=== PATIENT | female | born 1975 | race African-American/Black ===

== ENCOUNTER 2017-09-04 12:03 | Emergency (ER) | payer MEDICAID, OTHER ==
[~2017-09-04] VITALS: Ht 165.1 cm; Wt 79.4 kg
--- NOTE | 2017-09-04 12:03 | NUR ---
ABSCESS ON PUBIC AREA, +DRAINAGE, +DISCHARGE FROM VAGINA. GOWNED PT
[2017-09-04] MEDS ORDERED: LIDOCAINE HCL/PF 1% 30 ML SDV ONE (13:44)
[2017-09-04] MEDS ORDERED: LIDOCAINE HCL/PF 1% 30 ML VIAL TP ONE (14:00)
--- NOTE | 2017-09-04 14:17 | NUR ---
Patient discharged to home in stable condition. Written and verbal after care instructions given. Patient verbalizes understanding of instruction.
[2017-09-04 14:18] VITALS: BP 125/78
== END 2017-09-04 14:19 | disposition home or self-care (01) ==
LOC: ER 12:04
DX: L02.214 Cutaneous abscess of groin (principal); J45.909 Unspecified asthma, uncomplicated; D64.9 Anemia, unspecified; Z90.49 Acquired absence of other specified parts of digestive tract; Z88.1 Allergy status to other antibiotic agents; Z88.6 Allergy status to analgesic agent
CPT/HCPCS: 10060; 99283; A4606; A6402; J3490 ×2; Z7610

== ENCOUNTER 2017-09-13 19:55 | Emergency (ER) | payer OTHER ==
[~2017-09-13] VITALS: Ht 165.1 cm; Wt 79.8 kg
[2017-09-13 20:10] VITALS: BP 138/87
--- NOTE | 2017-09-13 21:33 | NUR ---
Patient eloped from facility. ER MD notified.
== END 2017-09-13 21:35 | disposition left against medical advice (07) ==
LOC: ER 20:02
DX: Z53.21 Procedure and treatment not carried out due to patient leaving prior to being seen by health care provider (principal)
CPT/HCPCS: A4606; Z7610

== ENCOUNTER 2018-01-03 18:14 | Emergency (ER) | payer OTHER ==
[~2018-01-03] VITALS: Ht 165.1 cm; Wt 81.6 kg
[2018-01-03 18:24] VITALS: BP 153/99
--- NOTE | 2018-01-03 18:47 | NUR ---
PT SEEN BY DR. THOMAS
== END 2018-01-03 19:01 | disposition home or self-care (01) ==
LOC: ER 18:15
DX: J45.909 Unspecified asthma, uncomplicated (principal); Z90.49 Acquired absence of other specified parts of digestive tract; Z88.1 Allergy status to other antibiotic agents; Z88.8 Allergy status to other drugs, medicaments and biological substances
CPT/HCPCS: 99281; A4606; Z7610; Z7502

== ENCOUNTER 2019-01-20 02:04 | Emergency (ER) | payer MEDICAID, OTHER ==
[~2019-01-20] VITALS: Ht 165.1 cm; Wt 68.0 kg
--- NOTE | 2019-01-20 02:30 | NUR ---
PT BIB RA WITH A C/O PALPITATIONS. PT WAS SEEN AT [facility] YESTERDAY AND WAS D/C'D HOME AFTER REC'ING FLUIDS. PT STATED THAT BY THE TIME SHE GOT HOME IT WAS AFTER 2229 AND SHE HAD A FRUIT CUP AND WENT TO BED. PT STATED THAT SHE WOKE UP THIS MORNING SHIVERING AND HER "HEART WAS RACING". PT LIVES WITH HER SMALL SON, WHO IS ALSO AT THE BEDSIDE. PT IS ON THE MONITOR AND CONTINUOUS PULSE OX. VSS.
[2019-01-20 02:53] LABS: BASOPHILS % (AUTO) 0.4 % (0.0-2.0); EOSINOPHILS % (AUTO) 0.6 % (0.0-6.0); HEMATOCRIT 30 % (33-45); HEMOGLOBIN 9.6 g/dL (11.5-14.8); LYMPHOCYTES # (AUTO) 0.8 /CMM (0.8-4.8); LYMPHOCYTES % (AUTO) 11.4 % (20.0-44.0); MEAN CORPUSCULAR HGB CONC 32 g/dl (31.0-36.0); MEAN CORPUSCULAR VOLUME 79 fL (82-100); MONOCYTES # (AUTO) 0.9 /CMM (0.1-1.30); MONOCYTES % (AUTO) 12.7 % (2.0-12.0); NEUTROPHILS # (AUTO) 5.2 /CMM (1.8-8.9); NEUTROPHILS % (AUTO) 74.9 % (43.0-81.0); PLATELET COUNT (AUTO) 304 /CMM (150-450); RED BLOOD CELL COUNT(AUTO) 3.86 MIL/uL (4.0-5.2); WHITE BLOOD COUNT (AUTO) 6.9 K/uL (4.3-11.0)
[2019-01-20] MEDS ORDERED: IV NS 0.9% 1,000 ML BAG IV ONE (03:00)
[2019-01-20] MEDS ORDERED: METOCLOPRAMIDE HCL 10 MG/2 ML VIAL IV ONE (03:00)
[2019-01-20 03:09] LABS: ALANINE AMINOTRANSFERASE 26 U/L (12-78); ALBUMIN 3.6 g/dL (3.4-5.0); ALKALINE PHOSPHATASE 52 U/L (46-116); ASPARTATE AMINOTRANSFERASE 14 U/L (15-37); BILIRUBIN,DIRECT 0.1 mg/dL (0.0-0.2); BILIRUBIN,TOTAL 0.4 mg/dL (0.2-1.0); CALCIUM, SERUM 8.8 mg/dL (8.5-10.1); CARBON DIOXIDE 27 mmol/L (21-32); CHLORIDE 104 mmol/L (98-107); CREATININE 0.9 mg/dL (0.6-1.3); GLUCOSE 105 mg/dL (74-106); POTASSIUM 3.2 mmol/L (3.5-5.1); SODIUM SERUM 143 mmol/L (136-145); TOTAL PROTEIN, SERUM 8.1 g/dL (6.4-8.2); UREA NITROGEN, BLOOD 8 mg/dL (7-18)
--- NOTE | 2019-01-20 03:25 | NUR ---
PT IS C/O FEELING COLD, PAIN MID STERNAL, AND A HEAD ACHE. MD IS AWARE.
[2019-01-20] MEDS ORDERED: KETOROLAC TROMETHAMINE INJ 30 MG/ML VIAL IV ONE (03:30)
[2019-01-20] MEDS ORDERED: POTASSIUM CHLORIDE 20 MEQ TAB.PRT.SR PO ONE ×2 (03:30→03:48)
[2019-01-20] MEDS ORDERED: KETOROLAC TROMETHAMINE INJ 30 MG/ML VIAL ONE (03:48)
[2019-01-20] MEDS ORDERED: IOHEXOL-350 100 ML VIAL IV ONE (04:10)
--- NOTE | 2019-01-20 04:25 | NUR ---
PT BROUGHT BY RADIOLOGY FOR CT
--- NOTE | 2019-01-20 04:50 | NUR ---
PT RETURNED FROM CT.
--- NOTE | 2019-01-20 05:15 | NUR ---
URINE SAMPLE OBTAINED AND SENT TO LAB.
[2019-01-20 05:42] LABS: APPEARANCE,URINE CLEAR (CLEAR); BILIRUBIN,URINE NEGATIVE (NEGATIVE); BLOOD, URINE NEGATIVE Ery/uL (NEGATIVE); COLOR,URINE YELLOW (YELLOW); KETONES,URINE 1+ (NEGATIVE); LEUKOCYTE ESTERASE ,URINE NEGATIVE (NEGATIVE); NITRITE, URINE NEGATIVE (NEGATIVE); PROTEIN,URINE NEGATIVE (NEGATIVE); UGLUCOSE NEGATIVE (NEGATIVE); UROBILINOGEN,URINE 0.2 EU/dL (0.2)
[2019-01-20 05:46] LABS: BACTERIA,URINE Rare /HPF (None Seen); RBC,URINE 0-2 /HPF (0-2); SQUAMOUS EPITHELIAL CELL,UR Few /HPF (None Seen); WBC,URINE 0-2 /HPF (0-3)
--- NOTE | 2019-01-20 05:56 | NUR ---
IV removed. Catheter intact and site benign. Pressure and 4x4 applied to site. No bleeding noted. Patient discharged to home in stable condition. Written and verbal after care instructions given. Patient verbalizes understanding of instruction. PT AMBULATED OUT WITH A STEADY GAIT. VSS
[2019-01-20 05:57] VITALS: BP 121/65
== END 2019-01-20 05:58 | disposition home or self-care (01) ==
LOC: ER 02:06
DX: E87.6 Hypokalemia (principal); R00.0 Tachycardia, unspecified; J45.909 Unspecified asthma, uncomplicated; D64.9 Anemia, unspecified; Z90.49 Acquired absence of other specified parts of digestive tract; Z98.890 Other specified postprocedural states; Z88.1 Allergy status to other antibiotic agents; Z88.8 Allergy status to other drugs, medicaments and biological substances
CPT/HCPCS: 36415; 71275; 80048; 80076; 81001; 84484; 85025; 85378; 87804 ×2; 93005; 96374; 99284; A4606; J1885; J7030; Q9967; 81000-TC; 87400

== ENCOUNTER 2019-02-13 18:29 | Emergency (ER) | payer MEDICAID ==
[~2019-02-13] VITALS: Ht 165.1 cm; Wt 82.1 kg
[2019-02-13 18:35] VITALS: BP 165/102
== END 2019-02-13 19:10 | disposition home or self-care (01) ==
LOC: ER 18:30
DX: I10 Essential (primary) hypertension (principal); F41.9 Anxiety disorder, unspecified; Z90.49 Acquired absence of other specified parts of digestive tract; Z98.890 Other specified postprocedural states; Z88.1 Allergy status to other antibiotic agents; Z88.8 Allergy status to other drugs, medicaments and biological substances
CPT/HCPCS: Z7502

== ENCOUNTER 2019-05-22 10:40 | Emergency (ER) | payer MEDICAID ==
[~2019-05-22] VITALS: Ht 165.1 cm; Wt 82.1 kg
[2019-05-22 10:51] VITALS: BP 144/102
--- NOTE | 2019-05-22 11:08 | NUR ---
DR DUQEU AT BEDSIDE
== END 2019-05-22 11:38 | disposition home or self-care (01) ==
LOC: ER 10:41
DX: S29.012A Strain of muscle and tendon of back wall of thorax, initial encounter (principal); K21.9 Gastro-esophageal reflux disease without esophagitis; J45.909 Unspecified asthma, uncomplicated; Z98.890 Other specified postprocedural states; Z90.49 Acquired absence of other specified parts of digestive tract; Z88.1 Allergy status to other antibiotic agents; Z88.8 Allergy status to other drugs, medicaments and biological substances; V49.49XA Driver injured in collision with other motor vehicles in traffic accident, initial encounter; Y93.89 Activity, other specified; Y92.410 Unspecified street and highway as the place of occurrence of the external cause; Y99.8 Other external cause status

== ENCOUNTER 2019-07-20 03:21 | Emergency (ER) | payer MEDICAID ==
[~2019-07-20] VITALS: Ht 165.1 cm; Wt 81.2 kg
--- NOTE | 2019-07-20 03:22 | NUR ---
PT BIBRA C/O VAGINAL BLEEDING SINCE 07/14. PT STATES SHE WOKE UP WITH LARGE CLOTS AND BLOOD IN HER BED. PT AXO4. RESPIRATIONS EVEN AND UNLABORED. PT PUT ON THE PACKER INSPECTOR AND PULSE OX.
[2019-07-20 03:47] LABS: BASOPHILS # (AUTO) 0.1 /CMM (0.0-0.2); BASOPHILS % (AUTO) 0.7 % (0.0-2.0); EOSINOPHILS % (AUTO) 2.1 % (0.0-6.0); HEMATOCRIT 30 % (33-45); HEMOGLOBIN 9.2 g/dL (11.5-14.8); LYMPHOCYTES # (AUTO) 3.4 /CMM (0.8-4.8); LYMPHOCYTES % (AUTO) 40.2 % (20.0-44.0); MEAN CORPUSCULAR HGB CONC 31 g/dl (31.0-36.0); MEAN CORPUSCULAR VOLUME 75 fL (82-100); MONOCYTES # (AUTO) 0.7 /CMM (0.1-1.30); MONOCYTES % (AUTO) 8.4 % (2.0-12.0); NEUTROPHILS # (AUTO) 4.1 /CMM (1.8-8.9); NEUTROPHILS % (AUTO) 48.6 % (43.0-81.0); PLATELET COUNT (AUTO) 245 /CMM (150-450); RED BLOOD CELL COUNT(AUTO) 3.99 MIL/uL (4.0-5.2); WHITE BLOOD COUNT (AUTO) 8.4 K/uL (4.3-11.0)
[2019-07-20 03:54] LABS: CALCIUM, SERUM 8.9 mg/dL (8.5-10.1); CREATININE 0.9 mg/dL (0.6-1.3)
[2019-07-20] MEDS ORDERED: IV NS 0.9% 500 ML BAG IV ONE (04:00)
--- NOTE | 2019-07-20 04:29 | NUR ---
ULTRASOUND AT BEDSIDE
--- NOTE | 2019-07-20 05:15 | NUR ---
PT RESTING IN BED, NAD NOTED. WILL CONTINUE TO MONITOR.
[2019-07-20 05:43] LABS: BILIRUBIN,URINE Negative (NEGATIVE); KETONES,URINE Negative (NEGATIVE); LEUKOCYTE ESTERASE ,URINE Trace (NEGATIVE); NITRITE, URINE Negative (NEGATIVE); PROTEIN,URINE >=300 mg/dl (NEGATIVE); UGLUCOSE Negative (NEGATIVE); UROBILINOGEN,URINE 0.2 EU/dL (0.2)
[2019-07-20 05:44] LABS: APPEARANCE,URINE BLOODY (CLEAR); BLOOD, URINE 3+ Ery/uL (NEGATIVE); COLOR,URINE RED (YELLOW)
[2019-07-20 05:59] LABS: BACTERIA,URINE None seen /HPF (None Seen); RBC,URINE TOO NUMEROUS TO COUN /HPF (0-2); SQUAMOUS EPITHELIAL CELL,UR Few /HPF (None Seen); WBC,URINE 0-2 /HPF (0-3)
[2019-07-20] MEDS ORDERED: POTASSIUM CHLORIDE 20 MEQ TAB.PRT.SR PO ONE ×3 (05:59→06:00)
--- NOTE | 2019-07-20 06:35 | NUR ---
IV removed. Catheter intact and site benign. Pressure and 4x4 applied to site. No bleeding noted.Patient discharged to home in stable condition. Written and verbal after care instructions given. Patient verbalizes understanding of instruction.
[2019-07-20 06:36] VITALS: BP 155/91
== END 2019-07-20 06:37 | disposition home or self-care (01) ==
LOC: ER 03:24
DX: E87.6 Hypokalemia (principal); D50.9 Iron deficiency anemia, unspecified; N93.8 Other specified abnormal uterine and vaginal bleeding; D25.9 Leiomyoma of uterus, unspecified; J45.909 Unspecified asthma, uncomplicated; Z88.6 Allergy status to analgesic agent; Z88.1 Allergy status to other antibiotic agents; Z98.890 Other specified postprocedural states; Z90.49 Acquired absence of other specified parts of digestive tract
CPT/HCPCS: 36415; 76856; 80048; 81001; 84702; 85025; 85730; 86850; 99284; J7040; 81000-TC

== ENCOUNTER 2022-11-23 23:13 | Inpatient (IN) | payer MEDICAID ==
[~2022-11-23] VITALS: Ht 165.1 cm; Wt 94.3 kg
--- NOTE | 2022-11-23 23:19 | NUR ---
BIBRA39. L KNEE SWELLING X 2 DAYS. DENIES ANY TRAUMA. ALSO C/O FEVER 98.6 ORALLY. TOOK TYLENOL 1 HR AGO. PT A/OX4. TOLERATING R/A WELL WITH NO RESP DISTRESS. CONNECTED PT TO POX AND MONITOR. SAFETY MEASURES IN PLACE.
[2022-11-23] MEDS ORDERED: KETOROLAC TROMETHAMINE INJ 30 MG/ML VIAL ONE (23:45)
--- NOTE | 2022-11-23 23:52 | NUR ---
IV LAC 20G S/L BLOOD COLLECTED AND SENT TO LAB
[2022-11-24] MEDS ORDERED: KETOROLAC TROMETHAMINE INJ 30 MG/ML VIAL IV ONE
[2022-11-24 00:03] LABS: BASOPHILS # (AUTO) 0.1 K/uL (0.0-0.2); BASOPHILS % (AUTO) 0.6 % (0.0-2.0); EOSINOPHILS % (AUTO) 1.2 % (0.0-6.0); HEMATOCRIT 37 % (33-45); HEMOGLOBIN 11.7 g/dL (11.5-14.8); LYMPHOCYTES # (AUTO) 2.7 K/uL (0.8-4.8); LYMPHOCYTES % (AUTO) 25.4 % (20.0-44.0); MEAN CORPUSCULAR HGB CONC 32 g/dl (31.0-36.0); MEAN CORPUSCULAR VOLUME 84 fL (82-100); MONOCYTES # (AUTO) 1.4 K/uL (0.1-1.30); NEUTROPHILS # (AUTO) 6.4 K/uL (1.8-8.9); NEUTROPHILS % (AUTO) 59.8 % (43.0-81.0); PLATELET COUNT (AUTO) 254 K/uL (150-450); WHITE BLOOD COUNT (AUTO) 10.6 K/uL (4.3-11.0)
[2022-11-24 00:15] LABS: ALBUMIN 3.2 g/dL (3.4-5.0); BILIRUBIN,DIRECT 0.1 mg/dL (0.0-0.2); BILIRUBIN,TOTAL 0.3 mg/dL (0.2-1.0); CALCIUM, SERUM 9.5 mg/dL (8.5-10.1); POTASSIUM 3.7 mmol/L (3.5-5.1); TOTAL PROTEIN, SERUM 8.4 g/dL (6.4-8.2)
[2022-11-24] MEDS ORDERED: IV NS 0.9% 250 ML IV ONE (00:22)
[2022-11-24] MEDS ORDERED: CT SWABBABLE VALVE TRANS SET 1 EA INFUS.SET MC ONE (00:22)
[2022-11-24] MEDS ORDERED: IOHEXOL-300 100 ML VIAL IV ONE (00:22)
--- NOTE | 2022-11-24 03:07 | NUR ---
MECHE PAGED READ ETA 20-30 MIN
[2022-11-24] MEDS ORDERED: LIDOCAINE 1%-EPI 1:100,000 20 ML VIAL ONE (03:53)
--- NOTE | 2022-11-24 04:15 | NUR ---
DR. REGAN AT PT'S BEDSIDE ASPIRATED BODY FLUID FROM LEFT KNEE. SYNOVIAL BODY FLUID COLLECTED AND SENT TO LAB
[2022-11-24] MEDS ORDERED: MORPHINE SULFATE INJ 2 MG/ML DISP.SYRIN ONE (04:19)
[2022-11-24] MEDS ORDERED: MORPHINE SULFATE INJ 2 MG/ML DISP.SYRIN IV ONE (04:30)
[2022-11-24] MEDS ORDERED: IV NS 0.9% 1,000 ML IV ONE (04:30)
--- NOTE | 2022-11-24 10:13 | NUR ---
SARITA GONZALEZ TO CALL US BACK.
--- NOTE | 2022-11-24 10:36 | NUR ---
PER DR FALLON, NO NEED FOR URINE STUDIES
[2022-11-24] MEDS ORDERED: ACETAMINOPHEN 325 MG TABLET ONE (10:39)
--- NOTE | 2022-11-24 10:41 | NUR ---
DR GONZALEZ SPEAKING W/ DR FALLON
[2022-11-24] MEDS ORDERED: MESA4ENE4 RC (11:05)
[2022-11-24] MEDS ORDERED: FAMO40TA7 PO (11:05)
[2022-11-24] MEDS ORDERED: VANCOMYCIN 1.25 GM in IV D5W 500 ML IV ONE (11:30)
[2022-11-24] MEDS ORDERED: CEFTRIAXONE 2 G in IV D5W 50 ML IV ONE (11:30)
--- NOTE | 2022-11-24 12:25 | NUR ---
[facility] CALLED CARPET LAYER HELPER PAGED.
--- NOTE | 2022-11-24 13:01 | NUR ---
DR SCHWARTZ AT BEDSIDE W/ PT
[2022-11-24] MEDS ORDERED: ONDANSETRON HCL/PF 4 MG/2 ML VIAL IVP PRN (14:00)
[2022-11-24] MEDS ORDERED: MAGNESIUM HYDROXIDE 30 ML UDC PO PRN (14:00)
[2022-11-24] MEDS ORDERED: MAG HYDROX/AL HYDROX/SIMETH 30 ML UDC PO PRN (14:00)
[2022-11-24] MEDS ORDERED: MORPHINE SULFATE INJ 2 MG/ML DISP.SYRIN IV PRN (14:00)
[2022-11-24] MEDS ORDERED: HYDROCODONE/APAP 5/325MG TABLET PO PRN (14:00)
[2022-11-24] MEDS ORDERED: CEFTRIAXONE 2 G in IV D5W 100 ML IV SCH (14:00)
[2022-11-24] MEDS ORDERED: ACETAMINOPHEN 325 MG TABLET PO PRN (14:00)
--- NOTE | 2022-11-24 14:34 | NUR ---
GOT BED 115-1 RN CRYSTAL
--- NOTE | 2022-11-24 14:40 | NUR ---
REPORT GIVEN TO ELIS RN ROOM 115-1 FOR LANI
--- NOTE | 2022-11-24 14:45 | NUR ---
DR FALLON ON THE PHONE W/ DR MEDEROS
--- NOTE | 2022-11-24 15:01 | NUR ---
PT TRANSFERRED TO 114 VIA GURNEY. WARM HANDOFF GIVEN TO RN ASSIGNED.
--- NOTE | 2022-11-24 15:20 | NUR ---
MS SENIOR CORPORATE RECRUITER NOTES RECEIVED PATIENT FROM ER ENDORSED BY RENARD WALKER VIA STRETCHER. PATIENT IS AWAKE AND A/O X4. ON ROOM AIR TOLERATING WELL. NO SOB NOTED. NOT IN DISTRESS. WITH COMPLAINTS OF MILD PAIN AT THE LEFT KNEE. ICE PACK PROVIDED. COMFORT MEASURES PROVIDED. PATIENT IS AMBULATORY WITH THE USE OF CRUTCHES. WITH IV ACCESS AT THE LEFT AC G20 WITH VANCOMYCIN IV INFUSING WELL. SKIN IS INTACT. MADE COMFORTABLE ON BED. SAFETY MEASURES IN PLACED. CALL LIGHT WITHIN REACH. BED ON LOWEST LOCKED POSITION, SIDE RAILS UP X2. WILL CONTINUE TO MONITOR.
[2022-11-24 15:30] VITALS: BP 132/61
[2022-11-24] MEDS: IV 1/2NS 1000 ML 1,000 ML IV PRN (15:42)
[2022-11-24] MEDS: ENOXAPARIN SODIUM 40 MG/0.4 ML DISP.SYRIN SQ SCH (15:44)
[2022-11-24 16:00] VITALS: BP 132/61
[2022-11-24] MEDS: CEFEPIME 1 GM in IV D5W 50 ML IV SCH (17:18)
--- NOTE | 2022-11-24 18:22 | NUR ---
MS RN CLOSING NOTES PATIENT ON BED AWAKE AND A/O X4 WITH SON AT BEDSIDE. ON ROOM AIR TOLERATING WELL. NO SOB NOTED. NOT IN DISTRESS. WITH COMPLAINTS OF MILD PAIN AT THE LEFT KNEE. ICE PACK PROVIDED. COMFORT MEASURES PROVIDED. PATIENT IS AMBULATORY WITH THE USE OF CRUTCHES. WITH IV ACCESS AT THE LEFT AC G20 WITH IVF 1/2NS AT 75ML/HR INFUSING WELL. DUE MEDS GIVEN. SAFETY MEASURES IN PLACED. CALL LIGHT WITHIN REACH. BED ON LOWEST LOCKED POSITION, SIDE RAILS UP X2. WILL ENDORSE TO NEXT SHIFT FOR LANI.
--- NOTE | 2022-11-24 19:30 | NUR ---
MS RN NOTES PT IN BED, AWAKE, ALERT AND ORIENTED X4. ON RA, SATTING 97%, BREATHING EVEN AND UNLABORED. 1/2 NS AT 75ML/HR INFUSING ON LAC 20G, NO INFILTRATION NOTED. PT DENIES ANY PAIN AT THIS TIME, LEFT KNEE ELEVATED ON PILLOW, MODERATE SWELLING, NO REDNESS NOTED. PT APPLYING ICE PACK ON SITE TO REDUCE SWELLING. SON AT BEDSIDE. VS STABLE. CALL LIGHT WITH IN REACH. BED LOCKED AND IN LOWEST POSITION. WILL CONT TO MONITOR PT.
[2022-11-24 20:00] VITALS: BP 134/84
[2022-11-25] VITALS: BP 122/78
[2022-11-25] MEDS: VANCOMYCIN 1.25 GM in IV D5W 250 ML IV SCH ×2 (00:12→13:13)
[2022-11-25] MEDS: CEFEPIME 1 GM in IV D5W 50 ML IV SCH ×3 (02:32→17:35)
[2022-11-25 06:20] LABS: BASOPHILS % (AUTO) 0.4 % (0.0-2.0); EOSINOPHILS % (AUTO) 2.3 % (0.0-6.0); HEMATOCRIT 33 % (33-45); HEMOGLOBIN 10.6 g/dL (11.5-14.8); LYMPHOCYTES % (AUTO) 24.6 % (20.0-44.0); MEAN CORPUSCULAR HGB CONC 32 g/dl (31.0-36.0); MEAN CORPUSCULAR VOLUME 84 fL (82-100); MONOCYTES # (AUTO) 0.9 K/uL (0.1-1.30); MONOCYTES % (AUTO) 11.4 % (2.0-12.0); NEUTROPHILS # (AUTO) 5.1 K/uL (1.8-8.9); NEUTROPHILS % (AUTO) 61.3 % (43.0-81.0); PLATELET COUNT (AUTO) 237 K/uL (150-450); RED BLOOD CELL COUNT(AUTO) 3.93 MIL/uL (4.0-5.2); WHITE BLOOD COUNT (AUTO) 8.3 K/uL (4.3-11.0)
--- NOTE | 2022-11-25 06:23 | NUR ---
MS RN CLOSING NOTES PT IN BED, AWAKE AND ALERTX4. AFEBRILE. NO C/O PAIN OR DISCOMFORT AT THIS TIME. ON RA, WELL TOLERATED, NO SOB, NO ACUTE RESP DISTRESS. 1/2NS 75ML/HR STILL INFUSING ON LAC #20, WELL ALLEN. IV ACCESS CLEAN, DRY AND PATENT. NO INFILTRATION NOTED. PT AMBULATORY WITH CANE WITH ASSIST. LEFT KNEE KEPT ELEVATED AT ALL TIMES, CONT TO APPLY ICE PACK. ALL DUE MEDICATIONS GIVEN ORDERED. ALL NEEDS ATTENDED TO. CALL LIGHT WITHIN EASY REACH. SAFETY MEASURES IMPLEMENTED AT ALL TIMES. WILL ENDORSE TO AM SHIFT.
[2022-11-25 07:21] LABS: CALCIUM, SERUM 8.7 mg/dL (8.5-10.1); CREATININE 0.9 mg/dL (0.6-1.3); MAGNESIUM 2.1 mg/dL (1.8-2.4); PHOSPHORUS 4.1 mg/dL (2.5-4.9); POTASSIUM 3.9 mmol/L (3.5-5.1)
--- NOTE | 2022-11-25 07:30 | NUR ---
RN OPENING NOTE PATIENT AWAKE IN BED RESTING, A/O X4. NO S/S OF PAIN NOTED AT THIS TIME. ON ROOM AIR, BREATHING EVEN AND UNLABORED, NO DISTRESS OR SHORTNESS OF BREATH NOTED. IV ACCESS LAC # 20G, INTACT, PATENT AND FLUSHING WELL. FALL AND SAFETY MEASURES IN PLACE, BED ALARM ON, BED IN LOW AND LOCK POSITION, CALL LIGHT AND TABLE WITHIN EASY REACH, SIDE RAILS UP X2. WILL CONTINUE TO MONITOR.
[2022-11-25 08:00] VITALS: BP 130/72
[2022-11-25] MEDS: FAMOTIDINE (20 MG) 20 MG TABLET PO SCH (08:39)
[2022-11-25] MEDS ORDERED: FAMOTIDINE 40 MG TABLET PO SCH (09:00)
[2022-11-25] MEDS ORDERED: MESALAMINE RC SCH ×2 (09:00)
[2022-11-25] MEDS: IV 1/2NS 1000 ML 1,000 ML IV PRN (09:57)
[2022-11-25] MEDS: ENOXAPARIN SODIUM 40 MG/0.4 ML DISP.SYRIN SQ SCH (14:48)
[2022-11-25 16:00] VITALS: BP 139/90
--- NOTE | 2022-11-25 18:58 | NUR ---
RN CLOSING NOTE PATIENT AWAKE IN BED RESTING, A/O X4. NO S/S OF PAIN NOTED AT THIS TIME. ON ROOM AIR, BREATHING EVEN AND UNLABORED, NO DISTRESS OR SHORTNESS OF BREATH NOTED. IV ACCESS ANTIONETTE MIDLINE, INTACT, PATENT AND FLUSHING WELL. SCHEDULE MEDICATIONS ADMINISTERED. ALL NEEDS ATTENDED AND ANTICIPATED. FALL AND SAFETY MEASURES IN PLACE, BED ALARM ON, BED IN LOW AND LOCK POSITION, CALL LIGHT AND TABLE WITHIN EASY REACH, SIDE RAILS UP X2. WILL ENDORSE TO TELEPATHIST.
--- NOTE | 2022-11-25 19:34 | NUR ---
RN OPENING NOTES RECEIVED PT IN BED, AWAKE, WATCHING TV WITH SON AT BEDSIDE. AOx4, ABLE TO MAKE NEEDS KNOWN. ON RA AND TOLERATING WELL. NO SOB NOTED. NO S/SX OF RESPIRATORY DISTRESS NOTED. SAFETY PRECAUTIONS IN PLACE: BED IN LOWEST, LOCKED POSITION, SIDERAILS UP x2, AND BRAKES ON. TABLE AND CALL LIGHT WITHIN REACH. ALL NEEDS MET AT THIS TIME.
[2022-11-25 20:00] VITALS: BP 142/90
[2022-11-25] MEDS: VANCOMYCIN 1 GM in IV D5W 250 ML IV SCH (20:19)
[2022-11-26] MEDS: CEFEPIME 1 GM in IV D5W 50 ML IV SCH ×2 (02:04→09:37)
--- NOTE | 2022-11-26 03:41 | NUR ---
RN NOTES PATIENT GOT UP FROM BED TO USE THE BATHROOM. COMPLAINED OF PAIN 8/. OFFERED PAIN MEDS BUT PATIENT REFUSED.
[2022-11-26 04:00] VITALS: BP 153/77
[2022-11-26] MEDS: VANCOMYCIN 1 GM in IV D5W 250 ML IV SCH (04:55)
--- NOTE | 2022-11-26 06:41 | NUR ---
RN CLOSING NOTES PT IN BED, ASLEEP, AWAKENS TO VERBAL STIMULI. AOx4, ABLE TO MAKE NEEDS KNOWN. ON RA AND TOLERATING WELL. NO SOB NOTED. NO S/SX OF RESPIRATORY DISTRESS NOTED. IV ACCES IN ANTIONETTE MIDLINE RUNNING 1/2 NS @ 75 ML/HR. ALL ORDERS CARRIED OUT. ALL NEEDS MET. PT KEPT CLEAN AND DRY. ALTHOUGH PATIENT COMPLAINED OF PAIN, SHE DID NOT WANT PAIN MEDICATION BUT DID ACCEPT HEAT PACKS AND ICE PACKS. SAFETY PRECAUTIONS IN PLACE: BED IN LOWEST, LOCKED POSITION, SIDERAILS UP x2, AND BRAKES ON. TABLE AND CALL LIGHT WITHIN REACH. WILL ENDORSE TO ONCOMING SHIFT FOR LANI.
[2022-11-26 07:01] LABS: CALCIUM, SERUM 8.8 mg/dL (8.5-10.1); CREATININE 0.8 mg/dL (0.6-1.3); POTASSIUM 3.7 mmol/L (3.5-5.1)
--- NOTE | 2022-11-26 07:30 | NUR ---
RN note Received patient in bed. Alert and conscious without active complaint. Spontaneous eye opening, not in respiratory distress. IV site is dry and patent, with NS running at 75mL/hr. Call interiano is placed within reach. Bed is locked and placed in the lowest position. All safety measures have been implemented. Will continue monitoring and are.
[2022-11-26 08:00] VITALS: BP 160/70
[2022-11-26] MEDS ORDERED: IBUP-1955 PO (08:39)
[2022-11-26] MEDS ORDERED: PANT20TA2 PO (08:40)
[2022-11-26] MEDS: FAMOTIDINE (20 MG) 20 MG TABLET PO SCH (08:52)
[2022-11-26 08:56] LABS: ALBUMIN 2.7 g/dL (3.4-5.0); BILIRUBIN,DIRECT 0.1 mg/dL (0.0-0.2); BILIRUBIN,TOTAL 0.4 mg/dL (0.2-1.0); TOTAL PROTEIN, SERUM 7.3 g/dL (6.4-8.2)
--- NOTE | 2022-11-26 10:00 | NUR ---
RN note Patient is planned for discharge today. Contacted PT for an evaluation before discharge. PT Jeromy is notified.
--- NOTE | 2022-11-26 13:00 | NUR ---
RN note Patient's ML is removed with hemostasis achieved. Noted improved mobility and better pain control. With patient's son Augustin accompany, they left via rental car.
== END 2022-11-26 13:49 | disposition home health service (06) | DRG 346 ==
LOC: ER 23:18 → MEDSG1 11-24 14:59
PROVIDERS: ATTEND Internal Medicine
PROC: 0S9D30Z Drainage of Left Knee Joint with Drainage Device, Percutaneous Approach (ICD-10-PCS; principal; 2022-11-24)
PROC: 05HD33Z Insertion of Infusion Device into Right Cephalic Vein, Percutaneous Approach (ICD-10-PCS; 2022-11-25)
DX: M06.9 Rheumatoid arthritis, unspecified (principal); K76.0 Fatty (change of) liver, not elsewhere classified; D64.9 Anemia, unspecified; M25.462 Effusion, left knee; Z20.822 Contact with and (suspected) exposure to COVID-19; J45.909 Unspecified asthma, uncomplicated; Z90.49 Acquired absence of other specified parts of digestive tract; Z98.890 Other specified postprocedural states; Z88.1 Allergy status to other antibiotic agents; Z88.8 Allergy status to other drugs, medicaments and biological substances; Z82.49 Family history of ischemic heart disease and other diseases of the circulatory system; K62.89 Other specified diseases of anus and rectum; K21.9 Gastro-esophageal reflux disease without esophagitis; E66.9 Obesity, unspecified; Z68.34 Body mass index [BMI] 34.0-34.9, adult; M35.00 Sjogren syndrome, unspecified; K51.90 Ulcerative colitis, unspecified, without complications
CPT/HCPCS: 36415; 73701-TC; 76700-TC; 80048-TC; 80076-TC; 80202-TC; 83735-TC; 84100-TC; 84703-TC; 85025-TC; 85652-TC; 85730-TC; 86140-TC; 87081-TC; 89051-TC; 89060-TC; 97112-TC; 97116-TC; 97530-TC; C9803; G0378; J0692; J0696; J1650; J1885; J2270; J3370; J3490; J7042; J7050; J7060; Q9967

== ENCOUNTER 2025-04-05 14:39 | Emergency (ER) | payer MEDICAID, OTHER ==
[~2025-04-05] VITALS: Ht 162.6 cm; Wt 72.6 kg
[~2025-04-05 14:39] MED LIST: FAMO40TA7 PO; IBUP-1955 PO; MESA4ENE4 RC; NITR100C6 PO; PANT20TA2 PO; PHEN-704 PO
[2025-04-05] MEDS: IV NS 0.9% 1,000 ML BAG IV ONE (15:45)
[2025-04-05 15:56] LABS: BASOPHILS % (AUTO) 0.5 % (0.0-2.0); EOSINOPHILS # (AUTO) 0.1 K/uL (0.0-0.7); EOSINOPHILS % (AUTO) 0.9 % (0.0-6.0); HEMATOCRIT 39 % (33-45); LYMPHOCYTES # (AUTO) 2.1 K/uL (0.8-4.8); LYMPHOCYTES % (AUTO) 25.1 % (20.0-44.0); MEAN CORPUSCULAR HEMOGLOBIN 28 PG (26.0-33.0); MEAN CORPUSCULAR HGB CONC 33 g/dl (31.0-36.0); MEAN CORPUSCULAR VOLUME 86 fL (82-100); MONOCYTES # (AUTO) 0.7 K/uL (0.1-1.30); MONOCYTES % (AUTO) 8.7 % (2.0-12.0); NEUTROPHILS # (AUTO) 5.4 K/uL (1.8-8.9); NEUTROPHILS % (AUTO) 64.8 % (43.0-81.0); PLATELET COUNT (AUTO) 211 K/uL (150-450); RED BLOOD CELL COUNT(AUTO) 4.58 MIL/uL (4.0-5.2); RED CELL DISTRIBUTION WIDTH 15.6 % (11.5-15.0); WHITE BLOOD COUNT (AUTO) 8.3 K/uL (4.3-11.0)
[2025-04-05 16:03] LABS: CREATININE 0.8 mg/dL (0.6-1.3); POTASSIUM 3.4 mmol/L (3.5-5.1)
[2025-04-05 16:09] LABS: ALBUMIN 3.6 g/dL (3.4-5.0); BILIRUBIN,DIRECT 0.1 mg/dL (0.0-0.2); BILIRUBIN,TOTAL 0.4 mg/dL (0.2-1.0); TOTAL PROTEIN, SERUM 8.9 g/dL (6.4-8.2)
[2025-04-05] MEDS ORDERED: CT SWABBABLE VALVE TRANS SET 1 EA INFUS.SET MC ONE (16:37)
[2025-04-05] MEDS ORDERED: IV NS 0.9% 250 ML IV ONE (16:37)
[2025-04-05] MEDS ORDERED: IOHEXOL-300 100 ML VIAL IV ONE (16:37)
[2025-04-05] MEDS ORDERED: KETOROLAC TROMETHAMINE 15 MG/ML VIAL ONE (17:08)
[2025-04-05] MEDS: KETOROLAC TROMETHAMINE 15 MG/ML VIAL IV ONE (17:20)
[2025-04-05 18:03] LABS: APPEARANCE,URINE SLIGHTLY CLOUDY (CLEAR); BILIRUBIN,URINE NEGATIVE (NEGATIVE); BLOOD, URINE 2+ Ery/uL (NEGATIVE); COLOR,URINE YELLOW (YELLOW); KETONES,URINE 2+ mg/dL (NEGATIVE); LEUKOCYTE ESTERASE ,URINE NEGATIVE (NEGATIVE); NITRITE, URINE NEGATIVE (NEGATIVE); PH,URINE 5.5 (5.0-8.0); PROTEIN,URINE NEGATIVE (NEGATIVE); UGLUCOSE NEGATIVE (NEGATIVE); UROBILINOGEN,URINE 0.2 EU/dL (0.2)
[2025-04-05] MEDS ORDERED: ACETAMINOPHEN ES 500 MG TABLET ONE (18:41)
[2025-04-05] MEDS: MORPHINE SULFATE INJ 2 MG/ML DISP.SYRIN IV ONE (18:42)
[2025-04-05] MEDS: ACETAMINOPHEN ES 500 MG TABLET PO ONE ×2 (18:54→18:55)
[2025-04-05] MEDS: METOCLOPRAMIDE HCL 10 MG/2 ML VIAL IV ONE (18:56)
[2025-04-05] MEDS ORDERED: POLY17PO4 PO (19:09)
[2025-04-05] MEDS ORDERED: AMOX-430 PO (19:09)
[2025-04-05] MEDS ORDERED: ACET-2030 PO (19:09)
[2025-04-05 19:21] LABS: ADD URINE CULTURE YES; BACTERIA,URINE 1+ /HPF (None Seen); MUCUS,URINE Few /LPF (None Seen); RBC,URINE 21-50 /HPF (0-2); SQUAMOUS EPITHELIAL CELL,UR 21-50 /HPF (None Seen); WBC,URINE 0-2 /HPF (0-3)
[2025-04-05 19:56] VITALS: BP 147/82; TEMP 98.3; O2SAT 98
== END 2025-04-05 19:52 | disposition home or self-care (01) ==
LOC: ER 14:39
DX: K51.90 Ulcerative colitis, unspecified, without complications (principal); K59.00 Constipation, unspecified; J45.909 Unspecified asthma, uncomplicated; Z79.899 Other long term (current) drug therapy; Z88.1 Allergy status to other antibiotic agents
CPT/HCPCS: 99285; 74177; 96374; 76856; 96361; 85025; 80048; 83690; 80076; 81001; 36415; J1885; J7050; Q9967; 87086-TC